=== PATIENT | male | born 1965 | race Caucasian/White ===

== ENCOUNTER 2017-04-03 17:08 | Emergency (ER) | payer OTHER ==
[2017-04-03 17:28] VITALS: BP 178/100
--- NOTE | 2017-04-03 17:29 | UC ---
Laceration HPI - HPI Summary HPI Summary: 52 YEAR OLD MALE PRESENTS WITH RIGHT 2ND FINGER LACERATION. - History Of Current Complaint Chief Complaint: UCLaceration Stated Complaint: HAND LACERATION Time Seen by Provider: 04/03/17 17:28 Hx Obtained From: Patient Laceration Location: Hand - RIGHT 2ND FINGER LACERATION Onset/Duration: Sudden Onset Pain Scale Used: 0-10 Numeric - 5 - Allergies/Home Medications Allergies/Adverse Reactions: Allergies Allergy/AdvReac Type Severity Reaction Status Date / Time No Known Allergies Allergy Verified 04/03/17 17:21 PMH/Surg Hx/FS Hx/Imm Hx Previously Healthy: Yes - Surgical History Surgical History: Yes Surgery Procedure, Year, and Place: 1990 FX [facility] - Family History Known Family History: Positive: None - Social History Alcohol Use: Occasionally Substance Use Type: None Smoking Status (MU): Current Some Day Smoker - Immunization History Most Recent Tetanus Shot: 1 year ago Review of Systems Constitutional: Negative Skin: Other - RIGHT 2ND FINGER LACERATION Eyes: Negative ENT: Negative Respiratory: Negative Cardiovascular: Negative Gastrointestinal: Negative Genitourinary: Negative Motor: Negative Neurovascular: Negative Musculoskeletal: Negative Neurological: Negative Psychological: Negative All Other Systems Reviewed And Are Negative: Yes Physical Exam Triage Information Reviewed: Yes Vital Signs: Initial Vital Signs Temp 36.7 C 04/03/17 17:23 Pulse 77 04/03/17 17:23 Resp 16 04/03/17 17:23 BP 178/100 04/03/17 17:23 Pulse Ox 100 04/03/17 17:23 Eye Exam: Normal ENT Exam: Normal Dental Exam: Normal Neck exam: Normal Neck: Positive: 1 Respiratory Exam: Normal Cardiovascular Exam: Normal Abdominal Exam: Normal Musculoskeletal Exam: Normal Neurological Exam: Normal Psychological Exam: Normal Skin: Positive: Other - RIGHT 2ND FINGER LACERATION Laceration Repair - Laceration Repair 1 Description: Linear Laceration Size After Repair: Length (cm) - < 2.5 CM Modified For Repair: No Type Injection: Local Anesthesia Used: 2.0% Lido Cleansing Completed Via Routine Prep: Yes Closure Material: Sutures - 5.0 NYLON Closure Method: Single Layer Suture Of: Skin Suture Type: Nylon - 2 SUTURES Laceration Course/Dx - Differential Dx - Laceration/Wound Provider Diagnoses: RIGHT 2ND FINGER LACERATION Discharge - Discharge Plan Condition: Stable Disposition: HOME Prescriptions: Cephalexin CAP* [Keflex CAP*] 500 mg PO TID #30 cap Patient Education Materials: Laceration (ED) Referrals: No Primary Care Phys,NOPCP [Primary Care Provider] -
[2017-04-03] MEDS ORDERED: Lidocaine 2% PF * 5 ML VIAL ONE (18:00)
== END 2017-04-03 18:24 | disposition home or self-care (01) ==
LOC: UCEAST 17:08
DX: S61.210A Laceration without foreign body of right index finger without damage to nail, initial encounter (principal); W45.8XXA Other foreign body or object entering through skin, initial encounter; Y93.9 Activity, unspecified; Y92.9 Unspecified place or not applicable; Z72.0 Tobacco use
CPT/HCPCS: 12001; 99202; G0463